=== PATIENT | female | born 1965 | race Hispanic/Latino ===

== ENCOUNTER 2017-03-09 13:57 | Emergency (ER) | payer OTHER ==
[~2017-03-09] VITALS: Ht 157.5 cm; Wt 100.0 kg
[2017-03-09 14:08] VITALS: BP 128/87; PULSE 74; RESP 14; O2SAT 95
--- NOTE | 2017-03-09 15:10 | ED.REPORT ---
HPI-Chest Pain 40 and Over Date of Service March 09, 2017 ED Provider: Dr. Jones 51 y/o female with a hx of thyroid disease and asthma presents to the ED complaining of intermittent left sided neck pain that radiates to her left arm, onset a week ago. The pt describes the pain as a shooting, burning pain which has now been constant since arriving at the ED. She states her pain is exacerbated with range of motion of the left arm and is not relieved by anything. She had a muscular tear in that arm when she was in the but denies any recent trauma. She also denies any chest pain. Associated sx include chills since last night, dizziness and SOB. The pt took a Tylenol with no relief. The pt has family hx of rheumatoid arthritis. Nursing Notes Stated Complaint: LEFT SIDE NECK/ARM PAIN Chief Complaint: General Complaint Nursing Notes Reviewed: Yes Allergies: Coded Allergies: No Known Allergies (Unverified , 03/09/17) No Active Prescriptions or Reported Meds General Time Seen by MD: 15:09 Chief Complaint Other (Neck pain) Hx Obtained From: Patient Arrived By: Walk-in Sudden in Onset?: Yes Onset Occurred: 1 week ago Symptom Duration: Intermittent Location: : Neck Quality: Painful Radiation: : Arm left Severity: Current: Moderate Severity: Maximum: Moderate Exacerbated by: Movement (ROM of left arm) Recent Healthcare: No recent doctor visit Similar Sx Previous: No Past Medical History Past Medical History Reports: Asthma, GERD Reports: Thyroid disease Past Surgical History none reported Family History Rhematoid Arthritis Smoking History Unknown if Ever Smoker Ambulatory Status Independent Review of Systems Constitutional: Reports: Chills Respiratory: Reports: Shortness of breath Cardiovascular: Denies: Chest pain Musculoskeletal: Reports: Extremity pain (Left arm), Neck pain Neurologic: Reports: Dizziness Complete sys rev & neg: except as marked. Physical Exam Physical Exam Notes: Exam performed by student only. The pt eloped before being seen by the physician, despite being informed she'd be seen in a few minutes. Initial Vital Signs Vital Signs (First) Date Time Temp Pulse Resp B/P Pulse Ox O2 Delivery O2 Flow Rate FiO2 03/09/17 14:08 36.6 74 14 128/87 95 Room Air Initial VS: Reviewed Interpretation & Diagnostics Lab Results Interpretation Result Diagram: 03/09/17 1503 03/09/17 1503 Test 03/09/17 15:03 White Blood Count 7.6th/mm3 (3.8-10.1) Red Blood Count 5.04mil/mm3 (3.90-5.20) Hemoglobin 14.1g/dL (12.0-15.6) Hematocrit 42.9% (35.0-46.0) Mean Corpuscular Volume 85.1fL (81-100) Mean Corpuscular Hemoglobin 28.0pg (27.0-35.0) Mean Corpuscular Hemoglobin Concent 32.9% (32.0-37.0) Red Cell Distribution Width 14.2% (12.3-15.4) Platelet Count 285bil/L (150-400) Neutrophils (%) (Auto) 71.5% (40-74) Lymphocytes (%) (Auto) 21.9% (14-46) Monocytes (%) (Auto) 4.6% (4-12) Eosinophils (%) (Auto) 1.6% (0-5) Basophils (%) (Auto) 0.1% (0-3) Sodium Level 137mEq/L (134-144) Potassium Level 4.8mEq/L (3.5-5.2) Chloride Level 100mEq/L (97-108) Carbon Dioxide Level 23mmol/L (18-29) Blood Urea Nitrogen 24mg/dL (6-24) Creatinine 0.88mg/dL (0.57-1.00) Estimat Glomerular Filtration Rate 97mL/min (>59) Glucose Level 100mg/dL (60-99) Calcium Level 9.3mg/dL (8.5-10.1) Magnesium Level 2.0mg/dL (1.6-2.6) Total Bilirubin 0.3mg/dL (0.0-1.2) Aspartate Amino Transf (AST/SGOT) 16U/L (0-50) Alanine Aminotransferase (ALT/SGPT) 18U/L (0-32) Alkaline Phosphatase 125U/L (25-150) Troponin T < 0.010ug/L (0.0-0.011) Total Protein 7.1g/dL (6.4-8.4) Albumin 4.1g/dL (3.4-5.0) Hold Sargent Top Tube Received (Received) ECG Interpretation ECG Interpretation: Nomral Sinus rhtyhm. Rate73. Time: 14:20 Interpreted by: ED physician Normal ECG Interpretation: Normal ECG w/ rate of... X-Ray Chest Interpretation Chest Xray Interpretation: IMPRESSION: Normal for age. Source of left arm pain is not seen. Dictated by: Toy Mujica M.D. on 03/09/2017 at 16:27 Approved by: Toy Mujica M.D. on 03/09/2017 at 16:27 View: Portable, 1 view Interpretation / Wet Read by: Interpret - Radiologist Re-Eval/Medical Decision Med Decision/Clinical Course The pt eloped before meeting the physician, despite being informed she'd be seen in a few minutes. She had symptoms suggestive of musculoskeletal pain no acute findings on ECG or labs/imaging. All of these were reviewed by me. Dot/Akua prior to my eval. Source of Hx: Old records Counseled Regarding: Other (Pt eloped) Discharge & Departure Primary Impression: Chest pain Chest pain type: unspecified Qualified Code: R07.9 - Chest pain, unspecified Disposition: LEFT WITHOUT BEING SEEN Discharge Condition All VS Reviewed: Yes Condition: Stable [facility] Scribe Attestation Portions of this note were transcribed by Clifton Velazquez. I, , personally performed the history, physical exam and medical decision-making;I reviewed and confirmed the accuracy of the information in the transcribed note. Signed by Ham Cassidy. 03/09/17 1704 copies to: [facility] Karel Jones MD March 09, 2017 15:10 Clifton Velazquez March 09, 2017 15:51 personally performed the history, physical exam and medical decision-making;I reviewed and confirmed the accuracy of the information in the transcribed note. Signed by Ham Cassidy. 03/09/17 1704 copies to: [facility] Karel Jones MD March 09, 2017 15:10 Clifton Velazquez March 09, 2017 15:51 Clifton Velazquez March 09, 2017 15:51
[2017-03-09 15:16] LABS: BASOPHILS % (AUTO) 0.1 % (0-3); EOSINOPHILS % (AUTO) 1.6 % (0-5); MONOCYTES % (AUTO) 4.6 % (4-12); Mean Corpuscular Volume 85.1 fL (81-100); NEUTROPHILS % (AUTO) 71.5 % (40-74); Platelet Count 285 bil/L (150-400)
[2017-03-09 15:47] LABS: TROPONIN T < 0.010 ug/L (0.0-0.011)
[2017-03-09 16:17] VITALS: BP 113/66; PULSE 76; RESP 16; O2SAT 96
--- NOTE | 2017-03-09 16:29 | DRSVH ---
PROCEDURE: X-RAY CHEST ONE VIEW, PORTABLE ([id number]) INDICATIONS: left arm pain TECHNIQUE: One view of the chest was acquired. COMPARISON: None. FINDINGS: Surgical changes and devices: None. Lungs and pleura: No pleural effusions or pneumothorax. Lungs are clear. Mediastinum: Mediastinal contours appear normal. Heart size is normal. Bones and chest wall: No suspicious bony lesions. Overlying soft tissues appear unremarkable. IMPRESSION: Normal for age. Source of left arm pain is not seen. Dictated by: Toy Mujica M.D. on 03/09/2017 at 16:27 Approved by: Toy Mujica M.D. on 03/09/2017 at 16:27
== END 2017-03-09 16:50 | disposition left against medical advice (07) ==
LOC: SED 13:57
DX: R07.9 Chest pain, unspecified (principal); Z53.29 Procedure and treatment not carried out because of patient's decision for other reasons